=== PATIENT | female | born 1950 | race African-American/Black ===

== ENCOUNTER → 2017-03-08 | Outpatient (CLI) | payer OTHER ==
--- NOTE | ~2017-03-08 | EEG ---
[facility] [place] [address] ELECTROENCEPHALOGRAM Name: LATRELL ALCOCER Room #: REG Tavo Yanez#: [id number] Admission: 03/08/17 Attend Phys: Florian Mcintyre Discharge: Date of : 48 Report #: [id number] THIS REPORT FOR: //name// CC: Florian cMintyre DATE OF SERVICE: 03/08/2017 This patient is being evaluated to see if this patient has any brain activity as I understand from the history. EEG was done by placing the electrodes by standard 10-20 system of electrode placement. Both referential and sequential montages were used for recording. Background activity in this patient's EEG appeared to be about 8 Hz and 40 microvolt. It appeared to be somewhat less well formed on the left side as compared to the right side. EEG is abnormal, but well defined cortical activity is present. Photic stimulation is unremarkable. IMPRESSION: This patient's EEG demonstrated well defined cortical activity. It is moderately abnormal because of intermixed slowing. That is a nonspecific finding, which can occur with encephalopathy, effect of psychotropic medication, dementia, etc. I did not see any well-defined epileptiform activity. Thank you very much for this referral and if you have any question, please feel free to contact me. By: [id number] Dallas Turcios MD /nt
== END ==
LOC: NEURO 08:08
DX: J96.90 Respiratory failure, unspecified, unspecified whether with hypoxia or hypercapnia (principal)